=== PATIENT | male | born 1945 | race Caucasian/White ===

== ENCOUNTER 2023-10-01 05:51 | Observation (INO) ==
[~2023-10-01 05:51] MED LIST: Buffered Lidocaine 1% SYRIN 1 ml INTRADERM ONE; Lactated Ringers 1000 ml BAG 1,000 ML IV SCH; Metoclopramide 5 MG/ML VIAL (10 mg) IV PRN; Naloxone 0.4 mg VIAL 0.4 mg/ml 1 ml VIAL IV PRN; Ondansetron 4 mg VIAL 2 MG/ML 2 ml VIAL IV PRN; Scopolamine 1 mg/72hr PATCH TRANSDERM ONE; fentaNYL 100 mcg/2 ml 50 MCG/ML VIAL IV PRN
[2023-10-01] MEDS ORDERED: Scopolamine 1 mg/72hr PATCH ONE (06:11)
[2023-10-01 06:44] LABS: Rapid COVID-19 Molecular Undetected (Undetected)
[2023-10-01] MEDS ORDERED: fentaNYL 100 mcg/2 ml 50 MCG/ML VIAL ONE (07:19)
[2023-10-01] MEDS ORDERED: Midazolam 2 mg/2 ml VIAL 1 mg/ml 2 ml VIAL (2 mg) ONE (07:19)
[2023-10-01] MEDS ORDERED: Propofol 10 MG/ML 20 ML BTL ONE (07:21)
[2023-10-01] MEDS ORDERED: Lidocaine 2% PF 5 ML VIAL ONE (07:22)
[2023-10-01] MEDS ORDERED: Glycopyrrolate IV 0.2 MG/ML 1 ML VIAL ONE (07:49)
[2023-10-01] MEDS ORDERED: Acetaminophen IV 1 GM/100ML 0 MG/0 ML BAG IV ONE (08:41)
[2023-10-01] MEDS: NS 0.9% 1000 ml BAG 1,000 ML IV SCH ×2 (11:00→17:56)
[2023-10-01] MEDS: Lidocaine 2% JELLY 6 ML Topical TOPICAL PRN ×2 (15:07→20:55)
[2023-10-01] MEDS: oxyCODONE/Acetamin 5/325 mg TAB PO PRN ×2 (16:01→16:32)
[2023-10-01] MEDS ORDERED: Docusate LIQ 100 MG/10 ML UDC PO SCH (21:00)
[2023-10-01] MEDS ORDERED: Multivitamins/Minerals TAB PO SCH (21:00)
[2023-10-02] MEDS: NS 0.9% 1000 ml BAG 1,000 ML IV SCH ×2 (00:43→07:34)
[2023-10-02] MEDS ORDERED: Psyllium PAK PO SCH (09:00)
[2023-10-02 11:22] VITALS: BP 123/67
== END 2023-10-02 12:25 | disposition home or self-care (01) ==
LOC: SSU 05:51 → OR 05:51
PROVIDERS: ADMIT Urology; ATTEND Urology